=== PATIENT | female | born 2000 | race Hispanic/Latino ===

== ENCOUNTER 2021-06-08 05:54 | Emergency (ER) | payer BC ==
[~2021-06-08] VITALS: Ht 162.6 cm; Wt 80.3 kg
[2021-06-08] MEDS ORDERED: DiphenhydrAMINE HCL 50 MG/ML VIAL ONE (06:16)
[2021-06-08] MEDS ORDERED: PROCHLORPERAZINE 10MG/2ML INJ ONE (06:16)
[2021-06-08] MEDS ORDERED: KETOROLAC 15MG/ML VIAL (15MG/ML) ONE (06:16)
[2021-06-08] MEDS ORDERED: SUMATRIPTAN SUCCINATE 25 MG TABLET PO SCH (06:30)
[2021-06-08] MEDS ORDERED: PROCHLORPERAZINE 10MG/2ML INJ IV SCH (06:30)
[2021-06-08] MEDS ORDERED: KETOROLAC 15MG/ML VIAL (15MG/ML) IV SCH (06:30)
[2021-06-08] MEDS ORDERED: DiphenhydrAMINE HCL 50 MG/ML VIAL IV SCH (06:30)
[2021-06-08 06:45] VITALS: BP 91/62
[2021-06-08 06:48] LABS: BASOPHILS % (AUTO) 0.3 % (0.0-5.0); HEMATOCRIT 42.6 % (36-48); LYMPHOCYTES % (AUTO) 16.1 % (21.0-51.0); MEAN CORPUSCULAR HEMOGLOBIN 29.7 pg (27.0-33.0); MEAN CORPUSCULAR HGB CONC 33.8 g/dL (32.0-36.0); MEAN CORPUSCULAR VOLUME 87.8 fL (79-99); MONOCYTES % (AUTO) 3.7 % (3.0-13.0); NEUTROPHILS % (AUTO) 79.2 % (40.0-77.0); PLATELET COUNT (AUTO) 327 K/uL (130-400); RED BLOOD CELL COUNT(AUTO) 4.85 MIL/uL (4.00-5.50); RED CELL DISTRIBUTION WIDTH 13.1 % (11.0-15.5); WHITE BLOOD COUNT (AUTO) 11.1 K/uL (4.8-10.8)
[2021-06-08 07:09] LABS: ALBUMIN 3.9 g/dL (3.5-5.0); BILIRUBIN,TOTAL 0.5 mg/dL (0.2-1.0); CREATININE 0.9 mg/dL (0.5-1.5); POTASSIUM 3.9 mmol/L (3.5-5.1); TOTAL PROTEIN, SERUM 8.3 g/dL (6.0-8.3)
[2021-06-08] MEDS ORDERED: FIORIT PO (07:15)
== END 2021-06-08 07:40 | disposition home or self-care (01) ==
LOC: EDH 05:54
DX: R51.9 Headache, unspecified (principal)
CPT/HCPCS: 36415; 80053; 84702; 85025; 96374; 96375; 99284; J0780; J1200; J1885

== ENCOUNTER 2021-06-11 00:39 | Emergency (ER) | payer BC ==
[~2021-06-11] VITALS: Ht 157.5 cm; Wt 79.8 kg
[~2021-06-11 00:39] MED LIST: FIORIT PO
[2021-06-11] MEDS ORDERED: DiphenhydrAMINE HCL 50 MG/ML VIAL IV ONE (02:30)
[2021-06-11] MEDS ORDERED: KETOROLAC 15MG/ML VIAL (15MG/ML) IV ONE (02:30)
[2021-06-11] MEDS ORDERED: PROCHLORPERAZINE 10MG/2ML INJ IV ONE (02:30)
[2021-06-11] MEDS ORDERED: DIPH25 PO (03:21)
[2021-06-11] MEDS ORDERED: PROC-13 PO (03:21)
[2021-06-11 03:38] VITALS: BP 136/74
== END 2021-06-11 03:39 | disposition home or self-care (01) ==
LOC: EDH 00:39
DX: R51.9 Headache, unspecified (principal)
CPT/HCPCS: 70450; 96374; 96375; 99284; J0780; J1200; J1885

== ENCOUNTER 2023-05-04 00:04 | Emergency (ER) | payer BC ==
[~2023-05-04] VITALS: Ht 157.5 cm; Wt 83.9 kg
[~2023-05-04 00:04] MED LIST changes: +CEPH500B PO; +DIPH-1242 PO; +FAMO-136 PO; +PROC-13 PO
[2023-05-04] MEDS: ONDANSETRON ODT 4MG TAB SL ONE (00:13)
[2023-05-04] MEDS: ONDANSETRON ODT 4MG TAB ONE (00:13)
[2023-05-04 01:34] LABS: BASOPHILS # (AUTO) 0.05 K/uL (0.00-0.20); BASOPHILS % (AUTO) 0.3 % (0.0-5.0); EOSINOPHILS # (AUTO) 0.11 K/uL (0.00-0.70); EOSINOPHILS % (AUTO) 0.7 % (0.0-8.0); HEMATOCRIT 42.6 % (36-48); IMMATURE GRANULOCYTE ABSOLUTE 0.09 K/uL (0-1); LYMPHOCYTES # (AUTO) 4.5 K/uL (1.0-4.8); LYMPHOCYTES % (AUTO) 26.5 % (21.0-51.0); MEAN CORPUSCULAR HEMOGLOBIN 29.4 pg (27.0-33.0); MEAN CORPUSCULAR VOLUME 86.2 fL (79-99); MONOCYTES # (AUTO) 1.4 K/uL (0.1-1.0); NEUTROPHILS # (AUTO) 10.7 K/uL (1.8-7.7); PLATELET COUNT (AUTO) 335 K/uL (130-400); RED BLOOD CELL COUNT(AUTO) 4.94 MIL/uL (4.00-5.50); WHITE BLOOD COUNT (AUTO) 16.8 K/uL (4.8-10.8)
[2023-05-04 01:45] LABS: CREATININE 0.9 mg/dL (0.5-1.5); POTASSIUM 3.5 mmol/L (3.5-5.1)
[2023-05-04 01:49] LABS: ALBUMIN 3.6 g/dL (3.5-5.0); BILIRUBIN,TOTAL 0.3 mg/dL (0.2-1.0); TOTAL PROTEIN, SERUM 7.4 g/dL (6.0-8.3)
[2023-05-04 02:41] VITALS: BP 108/67; PULSE 89; RESP 18; O2SAT 96
[2023-05-04] MEDS ORDERED: DICY20TA2 PO (03:06)
[2023-05-04 03:08] LABS: ADD UA MICROSCOPIC YES; APPEARANCE,URINE CLEAR (CLEAR); BILIRUBIN,URINE NEGATIVE (NEGATIVE); COLOR,URINE YELLOW (YELLOW); GLUCOSE, URINE (UA) NEGATIVE (NEGATIVE); KETONES,URINE NEGATIVE (NEGATIVE); LEUKOCYTE ESTERASE ,URINE 500 Leu/uL (NEGATIVE); NITRATE,URINE NEGATIVE (NEGATIVE); OCCULT BLOOD,URINE NEGATIVE (NEGATIVE); PH,URINE 6.5 (5.0-8.0); PROTEIN,URINE 10 mg/dL (NEGATIVE); UROBILINOGEN,URINE 0.2 mg/dL (0.2-1.0)
[2023-05-04 03:10] LABS: HCG,QUALITATIVE URINE NEGATIVE (NEGATIVE)
[2023-05-04 03:14] LABS: BACTERIA,URINE MOD /HPF (None Seen); MUCUS,URINE RARE LPF (None Seen); SQUAMOUS EPITHELIAL CELL,UR FEW /HPF (0-2)
[2023-05-04] MEDS: DICYCLOMINE 20MG (10MG/ML) AMP IM STA (03:41)
== END 2023-05-04 03:45 | disposition home or self-care (01) ==
LOC: EDH 00:04
DX: K80.20 Calculus of gallbladder without cholecystitis without obstruction (principal); K80.50 Calculus of bile duct without cholangitis or cholecystitis without obstruction; Z79.899 Other long term (current) drug therapy; Z98.890 Other specified postprocedural states
CPT/HCPCS: 99284; 76705; 82550; 80053; 83690; 85025; 87077; 87088; 87186; 81001; 81025; 36415; 96372; J0500

== ENCOUNTER 2023-05-22 04:39 | Emergency (ER) | payer BC ==
[~2023-05-22] VITALS: Ht 162.6 cm; Wt 80.7 kg
[~2023-05-22 04:39] MED LIST changes: +DICY20TA2 PO
[2023-05-22] MEDS: MORPHINE 4 MG SYG IVP ONE (05:11)
[2023-05-22] MEDS: LACTATED RINGERS 1000ML 1,000 ML IV ONE (05:11)
[2023-05-22] MEDS: ONDANSETRON 4MG INJ IVP ONE (05:11)
[2023-05-22 05:18] LABS: BASOPHILS # (AUTO) 0.04 K/uL (0.00-0.20); BASOPHILS % (AUTO) 0.3 % (0.0-5.0); EOSINOPHILS # (AUTO) 0.04 K/uL (0.00-0.70); EOSINOPHILS % (AUTO) 0.3 % (0.0-8.0); HEMATOCRIT 42.3 % (36-48); IMMATURE GRANULOCYTE ABSOLUTE 0.04 K/uL (0-1); LYMPHOCYTES # (AUTO) 3.5 K/uL (1.0-4.8); MEAN CORPUSCULAR HEMOGLOBIN 29.8 pg (27.0-33.0); MEAN CORPUSCULAR HGB CONC 34.3 g/dL (32.0-36.0); MEAN CORPUSCULAR VOLUME 86.9 fL (79-99); MONOCYTES % (AUTO) 8.6 % (3.0-13.0); NEUTROPHILS # (AUTO) 7.1 K/uL (1.8-7.7); NEUTROPHILS % (AUTO) 60.5 % (40.0-77.0); PLATELET COUNT (AUTO) 332 K/uL (130-400); RED BLOOD CELL COUNT(AUTO) 4.87 MIL/uL (4.00-5.50); RED CELL DISTRIBUTION WIDTH 12.5 % (11.0-15.5); WHITE BLOOD COUNT (AUTO) 11.8 K/uL (4.8-10.8)
[2023-05-22 05:21] LABS: HCG,QUALITATIVE URINE NEGATIVE (NEGATIVE)
[2023-05-22 05:23] LABS: APPEARANCE,URINE CLOUDY (CLEAR); BILIRUBIN,URINE NEGATIVE (NEGATIVE); COLOR,URINE YELLOW (YELLOW); GLUCOSE, URINE (UA) NEGATIVE (NEGATIVE); KETONES,URINE NEGATIVE (NEGATIVE); LEUKOCYTE ESTERASE ,URINE NEGATIVE Leu/uL (NEGATIVE); NITRATE,URINE NEGATIVE (NEGATIVE); OCCULT BLOOD,URINE NEGATIVE (NEGATIVE); PROTEIN,URINE 20 mg/dL (NEGATIVE); UROBILINOGEN,URINE 0.2 mg/dL (0.2-1.0)
[2023-05-22 05:26] LABS: ADD UA MICROSCOPIC YES
[2023-05-22 05:27] LABS: BACTERIA,URINE FEW /HPF (None Seen); MUCUS,URINE FEW LPF (None Seen); SQUAMOUS EPITHELIAL CELL,UR FEW /HPF (0-2)
[2023-05-22 05:39] LABS: ALBUMIN 3.6 g/dL (3.5-5.0); BILIRUBIN,TOTAL 1.4 mg/dL (0.2-1.0); CREATININE 0.8 mg/dL (0.5-1.0); POTASSIUM 4.3 mmol/L (3.5-5.1); TOTAL PROTEIN, SERUM 7.3 g/dL (6.0-8.3)
[2023-05-22 07:14] VITALS: BP 109/87; PULSE 76; RESP 18; O2SAT 98
[2023-05-22] MEDS: LACTATED RINGERS 1000ML IV SCH (08:03)
== END 2023-05-22 08:52 | disposition home or self-care (01) ==
LOC: EDH 04:39
DX: K80.70 Calculus of gallbladder and bile duct without cholecystitis without obstruction (principal); R74.01 Elevation of levels of liver transaminase levels; Z79.899 Other long term (current) drug therapy
CPT/HCPCS: 99284; 96374; 76705; 96361; 96375; 84484; 80053; 83690; 85025; 81001; 81025; 36415; 93005; J7120; J2405; J2270